=== PATIENT | male | born 1970 | race Caucasian/White ===

== ENCOUNTER 2024-10-10 17:37 | Emergency (ER) | payer BC, OTHER ==
[~2024-10-10] VITALS: Ht 172.7 cm; Wt 84.1 kg
[~2024-10-10 17:37] MED LIST: ATEN-169 PO; CARV-50 PO; HYDR25TA4 PO; METO-411 PO
[2024-10-10 21:40] VITALS: TEMP 98.3
[2024-10-10] MEDS: acetaminophen 325mg tablet PO ONE (21:47)
[2024-10-10] MEDS ORDERED: HYDR-3965 PO (23:13)
[2024-10-10] MEDS: HYDROcodone/acetaminophen 5mg/325mg tablet PO ONE (23:35)
[2024-10-10] MEDS: ondansetron 4mg rapidly disintigrating tab PO ONE (23:35)
[2024-10-10 23:43] VITALS: BP 161/98; PULSE 79; RESP 17; O2SAT 97
== END 2024-10-10 23:42 | disposition home or self-care (01) ==
LOC: ER 17:38
DX: M71.21 Synovial cyst of popliteal space [Baker], right knee (principal); M79.661 Pain in right lower leg; I10 Essential (primary) hypertension; C7A.00 Malignant carcinoid tumor of unspecified site; Z79.899 Other long term (current) drug therapy
CPT/HCPCS: 93971; 99284